=== PATIENT | female | born 1995 | race Two or more races ===

== ENCOUNTER → 2024-02-09 | Outpatient (CLI) | payer MEDICAID ==
[2024-02-10 08:06] LABS: RPR Non Reactive (Non Reactive)
[2024-02-10 22:06] LABS: Chlamydia Trachomatis, NAA Negative (Negative); Neisseria gonorrhoeae, NAA Negative (Negative)
== END | disposition home or self-care (01) ==
LOC: LAB 09:55
PROVIDERS: ATTEND Obstetrics & Gynecology
DX: Z34.80 Encounter for supervision of other normal pregnancy, unspecified trimester (principal); Z72.51 High risk heterosexual behavior; Z3A.00 Weeks of gestation of pregnancy not specified
CPT/HCPCS: 86592; 86850; 86900; 86901; 87086

== ENCOUNTER 2024-02-16 10:15 | Inpatient (IN) | payer MEDICAID ==
[~2024-02-16] VITALS: Ht 170.2 cm; Wt 95.3 kg
[2024-02-16 12:11] LABS: Fern Testing Positive
[2024-02-16] MEDS ORDERED: BUTORPHANOL TARTRATE 2 MG/1 ML VIAL IV PRN ×2 (12:30)
[2024-02-16] MEDS ORDERED: LIDOCAINE 2%HCL (LOCAL ANESTH.) INJ 20ML MDV IJ PRN (12:30)
[2024-02-16 13:29] LABS: Urine Bacteria None Seen /hpf (None Seen)
[2024-02-16 13:41] LABS: Basophils # (auto) 0 10 ^3/uL (0-0.2); Basophils % (auto) 0.2 % (0.0-2.0); Eosinophils # (auto) 0.1 10 ^3/uL (0-0.8); Eosinophils % (auto) 1.4 % (0.0-7.0); Hematocrit 40.8 % (36.0-46.0); Hemoglobin 13.8 g/dL (12.2-16.2); Lymphocytes # (auto) 1.5 10 ^3/uL (0.4-5.4); Mean Corpuscular Hemoglobin 32.5 pg (28.0-32.0); Mean Corpuscular Hgb Conc. 33.8 g/dL (32.0-36.0); Mean Corpuscular Volume 96.2 fL (80.0-100.0); Monocytes # (auto) 0.5 10 ^3/uL (0-1.3); Neutrophils # (auto) 5.5 10 ^3/uL (1.6-8.6); Neutrophils % (auto) 72.4 % (37.0-80.0); Nucleated Red Blood Cells % 0.1 %; Red Blood Cells 4.24 10^6/uL (4.0-5.20); Red Cell Distribution Width 13.4 % (11.8-14.3); White Blood Cell 7.7 10^3/uL (4.4-10.8)
[2024-02-16 13:42] LABS: Urine Blood 2+ /uL (Negative); Urine Clarity Clear (Clear); Urine Color Light-Yellow (Yellow); Urine Mucus FEW (None Seen); Urine Protein, UAD Negative (Negative); Urine Specific Gravity 1.018 (1.001-1.035); Urine Urobilinogen Normal (Negative); Urine WBC 1 /hpf (0 - 5)
[2024-02-16 13:53] LABS: INR 0.94 (0.9-1.15); Partial Thromboplastin Time 28.9 SEC (24.5-34.5)
[2024-02-16 13:56] LABS: Amphetamine Screen, Urine Neg (NEGATIVE); Barbiturate Scree,Urine Neg (NEGATIVE); Benzodiazephine Screen, Urine Neg (NEGATIVE); Cannabinoid Screen, Urine Pos (NEGATIVE); Cocaine Screen, Urine Neg (NEGATIVE); Opiate Scree,Urine Neg (NEGATIVE); Phencyclidine Screen, Urine Neg (NEGATIVE)
[2024-02-16 13:57] LABS: Alanine Aminotransferase 10 U/L (7-40); Albumin 3.8 g/dL (3.2-4.8); Alkaline Phosphatase 179 U/L (46-116); Anion Gap 6 (5-15); Aspartate Aminotransferase 18 U/L (13-40); BUN/Creatinine Ratio 10.8 (10.0-20.0); Bilirubin, Total 0.4 mg/dL (0.2-1.0); Blood Urea Nitrogen 7 mg/dL (9-23); Calcium 9.2 mg/dL (8.5-10.1); Carbon Dioxide 24 mmol/L (20-30); Chloride 107 mmol/L (98-107); Glucose 86 mg/dL (74-106); Potassium 3.6 mmol/L (3.5-5.1); Sodium 137 mmol/L (136-145)
[2024-02-16 13:58] LABS: Total Protein 6.6 g/dL (5.7-8.2)
[2024-02-16] MEDS ORDERED: CLINDAMYCIN 900MG IV 50 ML IV SCH (14:00)
[2024-02-16] MEDS: DERMOPLAST 60ML BOTTLE TOP PRN (14:10)
[2024-02-16] MEDS: WITCH HAZEL-GLYCERIN PAD TOP PRN (14:10)
[2024-02-16] MEDS: LACTATED RINGER'S 1,000 ML IV SCH (14:11)
[2024-02-16] MEDS: PHISODERM TOP SOLN 240ML BTL TOP PRN (14:11)
[2024-02-16] MEDS: NALOXONE HCL 0.4 MG/ML VIAL IV ONE (14:45)
[2024-02-16] MEDS ORDERED: TERBUTALINE SULFATE 1 MG/ML 1ML VIAL SC PRN (14:45)
[2024-02-16] MEDS: ePHEDrine SULFATE 50 MG/ML AMP IV ONE (14:45)
[2024-02-16] MEDS: ERYTHROMYCIN LACTOBIONATE 500 MG in SODIUM CHL 0.9% 250 ML IV SCH (15:38)
[2024-02-16] MEDS: LACT. RINGERS/OXYTOCIN 20UNITS 1,000 ML IV SCH (17:29)
[2024-02-16] MEDS: ROPIVACAINE HCL 200 ML ONE (17:30)
[2024-02-16] MEDS: VANCOMYCIN 1GM/200ML 200 ML IV SCH (18:35)
[2024-02-16] MEDS: diphenhdrAMINE HCL 50 MG/1 ML VL IV ONE (18:58)
[2024-02-16] MEDS ORDERED: VANCOMYCIN PER PHARMACY 0 MG IV SCH (19:00)
[2024-02-16] MEDS: LACT. RINGERS/OXYTOCIN 20UNITS 500 ML IV ONE ×2 (21:55→21:56)
[2024-02-16] MEDS: DOCUSATE SOD 100 MG CAP PO SCH (22:00)
[2024-02-17] VITALS (7 sets, daily range): BP systolic 99–129; BP diastolic 58–78; PULSE 63–77; RESP 16–18; TEMP 97.7–98.3; O2SAT 90–100
[2024-02-17 08:07] LABS: RPR Non Reactive (Non Reactive)
[2024-02-17 09:21] LABS: Basophils # (auto) 0 10 ^3/uL (0-0.2); Basophils % (auto) 0.2 % (0.0-2.0); Eosinophils # (auto) 0.1 10 ^3/uL (0-0.8); Eosinophils % (auto) 1.1 % (0.0-7.0); Hematocrit 36.7 % (36.0-46.0); Hemoglobin 12.6 g/dL (12.2-16.2); Lymphocytes # (auto) 1.2 10 ^3/uL (0.4-5.4); Lymphocytes % (auto) 13.3 % (10.0-50.0); Mean Corpuscular Hemoglobin 32.7 pg (28.0-32.0); Mean Corpuscular Hgb Conc. 34.2 g/dL (32.0-36.0); Mean Corpuscular Volume 95.6 fL (80.0-100.0); Monocytes # (auto) 0.5 10 ^3/uL (0-1.3); Monocytes % (auto) 5.3 % (0.0-12.0); Neutrophils # (auto) 7.5 10 ^3/uL (1.6-8.6); Neutrophils % (auto) 80.1 % (37.0-80.0); Red Blood Cells 3.84 10^6/uL (4.0-5.20); Red Cell Distribution Width 13.4 % (11.8-14.3); White Blood Cell 9.4 10^3/uL (4.4-10.8)
[2024-02-17] MEDS: PRENATAL VITAMIN TAB PO SCH (10:00)
[2024-02-17] MEDS: IBUPROFEN 600 MG TAB PO PRN (10:56)
[2024-02-17] MEDS: ACETAMINOPHEN 325 MG TAB PO PRN (10:57)
[2024-02-18] MEDS: diphenhdrAMINE HCL 25 MG CAP PO PRN (00:30)
[2024-02-18 03:15] VITALS: BP 101/62; PULSE 71; RESP 16; TEMP 98.4; O2SAT 100
[2024-02-18 07:30] VITALS: BP 122/82; PULSE 76; RESP 16; TEMP 98.8; O2SAT 97
[2024-02-18 10:50] VITALS: BP 119/79; PULSE 78; RESP 16; TEMP 98.5; O2SAT 96
[2024-02-21 19:06] LABS: Treponema pallidum Ab (FTA-Ab) Non Reactive (Non Reactive)
== END 2024-02-18 11:30 | disposition home or self-care (01) | DRG 560 ==
LOC: LDRP 10:15 → OBSVTOIN 12:28 → LDRP 12:32
PROVIDERS: ADMIT Obstetrics & Gynecology; ATTEND Obstetrics & Gynecology
PROC: 10E0XZZ Delivery of Products of Conception, External Approach (ICD-10-PCS; principal; 2024-02-16)
PROC: 3E0R3BZ Introduction of Anesthetic Agent into Spinal Canal, Percutaneous Approach (ICD-10-PCS; 2024-02-16)
PROC: 00HU33Z Insertion of Infusion Device into Spinal Canal, Percutaneous Approach (ICD-10-PCS; 2024-02-16)
DX: O77.0 Labor and delivery complicated by meconium in amniotic fluid (principal); Z37.0 Single live birth; O99.824 Streptococcus B carrier state complicating childbirth; Z3A.39 39 weeks gestation of pregnancy; Z88.0 Allergy status to penicillin; Z91.040 Latex allergy status; Z79.899 Other long term (current) drug therapy
CPT/HCPCS: 36415; 59025; 59409; 62282; 80053; 80307; 81001; 81002; 85025; 85610; 85730; 86592; 86703; 86803; 86850; 86900; 86901; 87340; 94760; 96360; 96361; 96365; 96366; 96374; G0378; J2590